=== PATIENT | male | born 1970 | race Hispanic/Latino ===

== ENCOUNTER → 2021-08-19 | Outpatient (CLI) | payer BC ==
[~2021-08-19] VITALS: Ht 162.6 cm; Wt 83.5 kg
[~2021-08-19] MED LIST: REGADENOSON 0.4 MG/5 ML PF SYG IVP SCH
== END | disposition home or self-care (01) ==
LOC: SHCH 08:47
PROVIDERS: ATTEND Internal Medicine
DX: R94.31 Abnormal electrocardiogram [ECG] [EKG] (principal)
CPT/HCPCS: 78452; 93017; 96374; A9500 ×2; J2785